=== PATIENT | female | born 1965 | race Caucasian/White ===

== ENCOUNTER 2017-09-25 15:01 | Emergency (ER) | payer OTHER ==
--- NOTE | 2017-09-25 15:16 | EDPHY ---
HPI/HX/ROS/PE/MDM Narrative: CHIEF COMPLAINT: Left ankle swelling, nausea, vomiting, dizzy HISTORY OF PRESENT ILLNESS: The patient is a 52 y/o female complaining of a possible insect bite on her left ankle that is now causing swelling, redness, and a burning pain. She is also nauseated, vomiting, and dizzy. Patient is from the [facility]. The insect bite occurred about 3 or 4 days ago and she thought it was a spider bite. She does not believe it was a tick bite. She traveled to [place] yesterday. When she woke this morning she noticed that the bite had begin to blister. She also woke with nausea and eventually developed a bilateral frontal headache. At around noon she began to vomit and the headache worsened. She decided to present to an urgent care who advised her to go to the emergency department. She has now developed dizziness described as some spinning sensation as well as abdominal cramping. While standing up at triage she fell to her knees due to weakness. Currently she feels like the room is spinning and she has tunnel vision making her feel faint. Her headache is a 4 /10 and the dizziness is aggravated when moving her head. Her symptoms are mildly improved while lying down. She denies recent head injury or fall, numbness or tingling in extremities, and speech or word finding difficulties. Denies history of DVT, PE, or cardiac problems. No fever, chills, chest pain, shortness of breath, palpitations, diarrhea, urinary complaints. REVIEW OF SYSTEMS: Aside from elements discussed in the HPI, a comprehensive 10-point review of systems was reviewed and is negative. 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 HEENT: Atraumatic. Eyes: MISHA, no nystagmus. EOMI. No icterus, no injection. Mouth: moist mucous membranes. No erythema or lesions. Neck: supple with no adenopathy. No meningismus. Negative Kernig's. Negative Brudzinski's. LUNGS: Clear to auscultation bilaterally, no wheezes, rhonchi or rales. CARDIAC: Regular rate and rhythm, no rubs, murmurs or gallops. ABDOMEN: Mild high epigastric tenderness to palpation. Soft, nondistended, bowel sounds normal. BACK: No CVA tenderness. EXTREMITIES: No trauma. No edema. Moving all extremities x4. NEURO: Alert and oriented x3. Cranial nerves intact, general weakness throughout , with slightly increased weakness in the right hand and left leg. SKIN: Left ankle: 1cm indurated, erythematic area on the medial surface of the ankle surrounding a central bite. Extension and erythema anterior to the bite gideon. Very mild lymphangitic spread of approximately 2 cm. Otherwise warm and dry. PSYCHIATRIC: Normal mentation, no agitation. Portions of this note were transcribed by a medical billing assistant. I personally performed a history, physical exam, medical decision making, and confirmed accuracy of information the transcribed note. ED Course: The patient is a 52 y/o female presenting with a possible insect bite on her left ankle that is now causing swelling, redness, and a burning pain. On exam she has a 1cm indurated, erythematic area surrounding central bite. There is extension and erythema anterior to the bite gideon, and mild lymphangitic spread. In addition she developed nausea, headache, vomiting and dizziness today. Her headache is a 4/10, she is tremulous and generally weak throughout. On exam her cranial nerves are intact and she has a supple neck. Head CT and labs ordered; she is declining an EKG at this time. 2L IV NS, 4mg IV Zofran given. 1606: Spoke with radiologist who reports there are no acute findings with the head CT. 1620: Reexamined: The patient is sitting in bed, looks much better, conversant. She reports her nauseous has significantly decreased and that the spinning sensation has also decreased. Her headache remains about the same. On repeat neurologic exam, she continues to have some weakness in her left lower extremity. Patient was able to stand and ambulate with no gait instability but feels like she is like she is out of her body". I discussed further imaging studies with the patient to include an MRI for possible posterior circulation issues. At this point the patient feels strongly that this is simply related to a headache and maybe dehydration. She accepted Toradol for her headache as well as meclizine to treat residual dizziness. She will begin p.o. Fluids. She will be reexamined. 1725: Reassessed patient, she continues to feel and look better. I have prescribed her meclizine for her dizziness and doxycycline for her insect bite. Return precautions provided; patient is comfortable with this plan. Patient and her sewer builder were well aware that I was concerned regarding her seeming focal weakness and history of feeling off balance and out of it. Her evaluation in the emergency department thus far has been reassuring although an EKG has not been obtained. The she would prefer to be discharged and to follow up as needed. She understands that she may return at any point in the emergency department especially if she is worsening. MDM: After history was obtained, and the physical exam performed, a differential for headache, dizziness, and nausea was considered including, but not limited to, subarachnoid hemorrhage, migraine headache, peripheral and central causes of vertigo, cardiac arrhythmias, cardiac ischemia, electrolyte disturbances, neurologic causes, orthostatic causes including dehydration, and blood loss. - Data Points Imaging Results: Head CT Impression: No acute intracranial findings. If symptoms persist and clinical suspicion warrants, consider MRI. Findings discussed with Venessa Olivas MD 09/25/2017 at 16:06. Dictated By: Luis Felipe Krishna MD Imaging: Discussed imaging studies w/ solution professional Radiologist, I viewed and interpreted images myself Laboratory Results: Laboratory Results 09/25/17 15:18 09/25/17 15:18 Medications Given: Discontinued Medications Dexamethasone (Decadron Injection) 10 mg IVP EDNOW ONE Stop: 09/25/17 16:16 Last Admin: 09/25/17 16:59 Dose: Not Given Diphenhydramine HCl (Benadryl Injection) 25 mg IVP EDNOW ONE Stop: 09/25/17 16:16 Last Admin: 09/25/17 17:00 Dose: Not Given Sodium Chloride (Ns) 1,000 mls @ 0 mls/hr IV ONCE ONE PRN Reason: Wide Open Stop: 09/25/17 15:31 Last Admin: 09/25/17 15:31 Dose: 1,000 mls Sodium Chloride (Ns) 1,000 mls @ 500 mls/hr IV EDNOW ONE PRN Reason: Protocol Stop: 09/25/17 17:40 Last Admin: 09/25/17 17:00 Dose: Not Given Ketorolac Tromethamine (Toradol) 30 mg IVP EDNOW ONE Stop: 09/25/17 16:16 Last Admin: 09/25/17 16:31 Dose: 30 mg Meclizine HCl (Meclizine Hcl) 25 mg PO EDNOW ONE Stop: 09/25/17 16:16 Last Admin: 09/25/17 16:31 Dose: 25 mg Metoclopramide HCl (Reglan Injection) 10 mg IVP EDNOW ONE Stop: 09/25/17 16:16 Last Admin: 09/25/17 16:59 Dose: Not Given Ondansetron HCl (Zofran) 4 mg IVP EDNOW ONE Stop: 09/25/17 15:31 Last Admin: 09/25/17 15:32 Dose: 4 mg Point of Care Test Results: Chemistry 09/25/17 15:54 POC Troponin I 0.00 ng/mL ng/mL (0.00-0.08) General Time Seen by Provider: 09/25/17 15:13 Initial Vital Signs: Initial Vital Signs Temperature (C) 36.8 C 09/25/17 15:06 Heart Rate 76 09/25/17 15:06 Respiratory Rate 16 09/25/17 15:06 Blood Pressure 112/75 09/25/17 15:06 O2 Sat (%) 97 09/25/17 15:06 O2 Delivery Mode Room Air Allergies/Adverse Reactions: influenza virus vacc trivalent, split [From Fluzone] Allergy (Verified 09/25/17 15:05) Penicillins Allergy (Verified 09/25/17 15:04) Sulfa (Sulfonamide Antibiotics) Allergy (Verified 09/25/17 15:04) Home Medications: Medication Instructions Recorded Doxycycline Hyclate [Vibramycin] 100 mg PO BID #10 cap 09/25/17 Levothyroxine 09/25/17 Departure - Departure Disposition: Home, Routine, Self-Care Clinical Impression: Dizziness, Weakness Insect bite Qualifiers: Encounter type: initial encounter Qualified Code(s): W57.XXXA - Bitten or stung by nonvenomous insect and other nonvenomous arthropods, initial encounter Headache Qualifiers: Headache type: unspecified Headache chronicity pattern: acute headache Intractability: not intractable Qualified Code(s): R51 - Headache Condition: Good Instructions: Acute Headache (ED), Dizziness (ED) Additional Instructions: Use meclizine as directed for recurrent nausea or dizziness MECLIZINE 25 MG BY MOUTH EVERY 8 HR FOR NAUSEA, or DIZZINESS. Take Tylenol or ibuprofen as needed for recurrent headache. Since you are allergic to penicillins, we have placed you on doxycycline to treat the cellulitis on your ankle. This will also treat any early Lyme disease. Drink plenty of fluids. Small frequent sips. Return to the emergency department immediately for severe headache, numbness, persistent or worsening weakness, severe vertigo, neck pain, inability to tolerate fluids by mouth or other worsening of condition. If symptoms persist for more than 48 hours, followup with your primary care physician and/or a neurologist for further evaluation. Referrals: JORGE BRADSHAW [Other] - As per Instructions Prescriptions: Doxycycline Hyclate [Vibramycin] 100 mg PO BID #10 cap Report Scribed for: Venessa Olivas Report Scribed by: Deanne Goncalves Date of Report: 09/25/17 Time of Report: 15:16
[2017-09-25] MEDS ORDERED: ONDANSETRON 4 MG/2 ML VIAL ONE (15:20)
[2017-09-25] MEDS ORDERED: ONDANSETRON 4 MG/2 ML VIAL IVP ONE (15:30)
[2017-09-25] MEDS ORDERED: NS 1,000 ML IV ONE ×2 (15:30→15:41)
[2017-09-25 15:50] LABS: PLATELET COUNT 308 10^3/uL (150-400)
[2017-09-25] MEDS ORDERED: MECLIZINE HCL 25 MG TAB PO ONE (16:15)
[2017-09-25] MEDS ORDERED: DEXAMETHASONE 10 MG/ML VIAL IVP ONE (16:15)
[2017-09-25] MEDS ORDERED: METOCLOPRAMIDE 10 MG/2 ML VIAL IVP ONE (16:15)
[2017-09-25] MEDS ORDERED: KETOROLAC 30 MG/1 ML SDV IVP ONE (16:15)
[2017-09-25 16:29] LABS: INR 1.04 (0.83-1.16); PROTIME(PATIENT) 13.8 SEC (12.0-15.0)
[2017-09-25 17:50] VITALS: BP 150/97
== END 2017-09-25 17:52 | disposition home or self-care (01) ==
DX: S00.96XA Insect bite (nonvenomous) of unspecified part of head, initial encounter (principal); R42 Dizziness and giddiness; R53.1 Weakness; E86.9 Volume depletion, unspecified; W57.XXXA Bitten or stung by nonvenomous insect and other nonvenomous arthropods, initial encounter
CPT/HCPCS: 84484-PO; 96374; J1100; J1200; J1885; J2405; J2765